=== PATIENT | male | born 1965 | race Caucasian/White ===

== ENCOUNTER 2016-07-28 09:04 | Inpatient (IN) | payer MEDICAID ==
[2016-07-28] VITALS (21 sets, daily range): BP systolic 116–144; BP diastolic 55–77; PULSE 81–98; RESP 14–27; TEMP 98.2
[~2016-07-28] VITALS: Wt 80.0 kg
[2016-07-28] MEDS ORDERED: CEFAZOLIN 1 GM/50 ML (PMX) 50 ML IVPB ONE (09:30)
[2016-07-28] MEDS ORDERED: morphine 4 MG/ML VIAL IV STA ×2 (09:34→14:12)
[2016-07-28] MEDS ORDERED: ONDANSETRON 4 MG INJ IV STA ×2 (09:34→10:52)
[2016-07-28] MEDS ORDERED: SOD CHLORIDE 0.9% 1,000 ML IV ONE ×2 (10:30→14:30)
--- NOTE | 2016-07-28 10:37 | RADRPT ---
PROCEDURE: CR Left Knee CLINICAL INDICATION: Nail puncture wound TECHNIQUE: An AP, lateral, and an oblique radiographs were submitted. COMPARISON: None FINDINGS: Osseous Structures: 8 nail is seen extend obliquely through the distal left femur. The osseous [place] ents otherwise appear intact. Joint Spaces: The joint spaces are well maintained. No joint effusion is identified. Soft Tissues: The soft tissues appear unremarkable. IMPRESSION: 1. An obliquely oriented nail is seen to the distal left femur entering the medial femoral condyle and extending posteriorly, superiorly and laterally. 2. Otherwise, unremarkable left knee series. Physician Shirley Date Time Electronically viewed and signed by Physician Shirley on 07/28/2016 10:36 /
[2016-07-28] MEDS ORDERED: HYDROmorphONE 1 MG/ML SYG IV STA ×3 (10:52→16:47)
[2016-07-28 10:58] LABS: ADD SCAN DIFF NO
[2016-07-28 11:00] LABS: BASOPHILS % 0.5 % (0.0-2.0); EOSINOPHILS # 0.1 10^3/ul (0.0-0.5); EOSINOPHILS % 2.1 % (0.0-7.0); HEMATOCRIT 47.5 % (42.0-52.0); HEMOGLOBIN 15.7 g/dl (14.0-18.0); LYMPHOCYTES # 1.5 10^3/ul (0.8-2.9); LYMPHOCYTES % 33.3 % (15.0-51.0); MEAN CORPUSCULAR HEMOGLOBIN 32.3 pg (29.0-33.0); MEAN CORPUSCULAR HGB CONC 33.1 g/dl (32.0-37.0); MEAN CORPUSCULAR VOLUME 97.7 fl (82.0-101.0); MONOCYTE # 0.3 10^3/ul (0.3-0.9); MONOCYTES % 7.8 % (0.0-11.0); NEUTROPHIL # 2.5 10^3/ul (1.6-7.5); NEUTROPHILS % 56.1 % (39.0-77.0); PLATELET COUNT 154 10^3/UL (140-415); RED BLOOD COUNT 4.86 10^6/ul (4.70-6.10); RED CELL DISTRIBUTION WIDTH 12.4 % (11.5-14.5); WHITE BLOOD COUNT 4.4 10^3/ul (4.8-10.8)
--- NOTE | 2016-07-28 11:14 | ERD ---
ER Documentation Chief Complaint Date/Time DATE: 07/28/16 TIME: 11:11 Chief Complaint nail gun to the left knee HPI 51-year-old male comes in with a penetrating nail gun in the left anterior knee that occurred this morning just prior to arrival. He was at work and he was moving the nail gun in his finger was actually on the trigger that pushed it causing the nail to penetrate into his left knee. He states his last tetanus shot was in the last 2-3 years. He states that he has no numbness, paresthesias or weakness. ROS All systems reviewed and are negative except as per history of present illness. Allergies Allergies: Uncoded Allergies: PCN (Allergy, Unknown, 07/28/16) PMhx/Soc Medical and Surgical Hx: pt denies Medical Hx, pt denies Surgical Hx Hx Alcohol Use: No Hx Substance Use: No Hx Tobacco Use: No Physical Exam Vitals Vital Signs Date Time Temp Pulse Resp B/P Pulse Ox O2 Delivery O2 Flow Rate FiO2 07/28/16 09:06 98.0 72 18 136/63 99 Physical Exam General: Well-developed, well-nourished. The patient appears in no acute distress. HEENT: Head is normocephalic, atraumatic. No scleral icterus. Neck: Supple. Nontender. Lungs: Clear to auscultation. Normal air movement. Heart: Regular rate and rhythm. S1 and S2 are normal. No murmurs, gallops, or rubs. Abdomen: Soft, nontender, nondistended. Bowel sounds are normoactive. Extremities: Penetrating rusted nail over the left anterior medial knee, there is no active bleeding. Limited range of motion due to foreign body in the knee. Dorsalis pedis pulses 2+ bilaterally. Neurologic: Alert and oriented 3. No focal deficits. Skin: Normal turgor. No rash or lesions. Result Diagram: 07/28/1645 07/28/1645 Results 24 hrs Laboratory Tests Test 07/28/16 09:45 White Blood Count 4.410^3/ul Red Blood Count 4.8610^6/ul Hemoglobin 15.7g/dl Hematocrit 47.5% Mean Corpuscular Volume 97.7fl Mean Corpuscular Hemoglobin 32.3pg Mean Corpuscular Hemoglobin Concent 33.1g/dl Red Cell Distribution Width 12.4% Platelet Count 96132^3/UL Mean Platelet Volume 11.0fl Neutrophils % 56.1% Lymphocytes % 33.3% Monocytes % 7.8% Eosinophils % 2.1% Basophils % 0.5% Nucleated Red Blood Cells % 0.0/100WBC Neutrophils # 2.510^3/ul Lymphocytes # 1.510^3/ul Monocytes # 0.310^3/ul Eosinophils # 0.110^3/ul Basophils # 0.010^3/ul Nucleated Red Blood Cells # 0.010^3/ul Sodium Level 138mmol/L Potassium Level 3.7mmol/L Chloride Level 105mmol/L Carbon Dioxide Level 26mmol/L Anion Gap 11 Blood Urea Nitrogen 16mg/dl Creatinine 0.76mg/dl Glucose Level 130mg/dl Calcium Level 8.6mg/dl Current Medications Medications (Trade) Dose Ordered Sig/Rebecca Route PRN Reason Start Time Stop Time Status Last Admin Dose Admin Cefazolin Sodium (Ancef 1 Gm/50 ml (Pmx)) 50 ml @ 100 mls/hr ONCE ONCE IVPB 07/28/16 09:30 07/28/16 09:59 DC 07/28/16 09:50 Morphine Sulfate (morphine) 4 mg ONCE STAT IV 07/28/16 09:34 07/28/16 09:36 DC 07/28/16 09:50 Ondansetron HCl 4 mg 4 mg ONCE STAT IV 07/28/16 09:34 07/28/16 09:36 DC 07/28/16 09:50 Sodium Chloride (NS) 1,000 ml @ 1,000 mls/hr Q1H ONCE IV 07/28/16 10:30 07/28/16 11:29 DC 07/28/16 10:16 Hydromorphone HCl (Dilaudid) 1 mg ONCE STAT IV 07/28/16 10:52 07/28/16 10:53 DC 07/28/16 10:55 Ondansetron HCl (Zofran Inj) 4 mg ONCE STAT IV 07/28/16 10:52 07/28/16 10:53 DC 07/28/16 10:55 Hydromorphone HCl (Dilaudid) 1 mg ONCE STAT IV 07/28/16 11:31 07/28/16 11:32 DC 07/28/16 11:36 PROCEDURE: CR Left Knee CLINICAL INDICATION: Nail puncture wound TECHNIQUE: An AP, lateral, and an oblique radiographs were submitted. COMPARISON: None FINDINGS: Osseous Structures: 8 nail is seen extend obliquely through the distal left femur. The osseous elements otherwise appear intact. Joint Spaces: The joint spaces are well maintained. No joint effusion is identified. Soft Tissues: The soft tissues appear unremarkable. IMPRESSION: 1. An obliquely oriented nail is seen to the distal left femur entering the medial femoral condyle and extending posteriorly, superiorly and laterally. 2. Otherwise, unremarkable left knee series. Physician Shirley Date Time Electronically viewed and signed by Physician Shirley on 07/28/2016 10:36 RH/ CC: ALEKSANDAR MCINTYRE PA-C PROCEDURE: US Lower Extremity Arteries. CLINICAL INDICATION: Pain status post nail gun injury to left knee TECHNIQUE: Multiple longitudinal and transverse images of the bilateral lower extremity arteries were obtained with sharma scale and color Doppler imaging. COMPARISON: No prior studies are available for comparison. 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 The DORIE measures 1.0 bilaterally. IMPRESSION: Unremarkable bilateral lower extremity arterial ultrasound.. RPTAT:HH .Michelle Rader MD, MD Date Time Electronically viewed and signed by .Michelle Rader MD, MD on 07/28/2016 11 :32 12-lead EKG(interpreted by supervising physician): Reviewed by Dr. Reynolds Rate/Rhythm: Normal Sinus Rhythm, rate of 60 QRS, ST, T-waves: No changes consistent w/ acute ischemia, no intervals, no dysrhythmias, no ectopy Impression: No evidence of ischemia or arrhythmia Procedures/MDM ER course: Patient states that his last oral intake was coffee this morning, last solid food intake was last night. He was kept n.p.o. He had a line placed, blood was obtained, he was given morphine 4 mg and Zofran 4 mg IV. He was given a fluid bolus of normal saline 1 L. Patient gave receive an additional dose of Dilaudid 1 mg and Zofran 4 mg IV. Consultation: On-call orthopedist Dr. Birmingham was consulted regarding this penetrating injury into the the knee, case was deferred by him. Thereafter, Dr. Georgiana Vaca was consulted, my attending physician, Dr. Reynolds spoke with him regarding the x-ray findings, IV antibiotics and possible surgery was determined at this point. I spoke with the hospitalist, Dr. Crawford, who accepted the patient for [facility]. MDM: 51-year-old male will be admitted to the hospital for nail removal from the left femur. Patient was monitored in the emergency department, this time there was no evidence of an arterial injury, foreign body will likely need removal with orthopedist, Dr. Vaca who has accepted the patient. Preop workup and labs were ordered. The case was reviewed and discussed with Dr. Reynolds who agrees with the plan of care including labs, treatment, and advanced imaging as appropriate. Departure Diagnosis: Primary Impression: Foreign body of knee Condition: Stable ALEKSANDAR MCINTYRE PA-C Jul 28, 2016 11:14
[2016-07-28 11:19] LABS: CALCIUM 8.6 mg/dl (8.4-10.2); CREATININE 0.76 mg/dl (0.61-1.24); POTASSIUM 3.7 mmol/L (3.5-5.1)
--- NOTE | 2016-07-28 11:33 | RADRPT ---
PROCEDURE: US Lower Extremity Arteries. CLINICAL INDICATION: Pain status post nail gun injury to left knee TECHNIQUE: Multiple longitudinal and transverse images of the bilateral lower extremity arteries w ere obtained with sharma scale and color Doppler imaging. COMPARISON: No prior studies are available for comparison. FINDINGS: RIGHT: CFA71.1 cm/sec PSFA84.7 cm/sec MSFA73.5 cm/sec DSFA47.9 cm/sec POP52.6 cm/sec PTA61.7 cm/sec DPA47.4 cm/sec LEFT: CFA85.3 cm/sec PSFA69.3 cm/sec MSFA74.1 cm/sec DSFA69.2 cm/sec POP40.0 cm/sec PTA59.8 cm/sec DPA32.9 cm/sec All visualized vessels demonstrate normal triphasic flow. The DORIE measures 1.0 bilaterally. IMPRESSION: Unremarkable bilateral lower extremity arterial ultrasound.. RPTAT:HH .Michelle Rader MD, MD Date Time Electronically viewed and signed by .Michelle Rader MD, on 07/28/2016 11:32 .G/
[2016-07-28 12:08] LABS: INR 0.99; PROTIME 13.1 Sec (12.2-14.2)
--- NOTE | 2016-07-28 12:20 | RADRPT ---
PROCEDURE: Chest Radiograph. CLINICAL INDICATION: Preop. Left knee foreign body. TECHNIQUE: Single frontal chest radiograph. COMPARISON: None available FINDINGS: The cardiomediastinal silhouette is within normal limits. No infiltrate or effusion is seen. Th e bones are intact. IMPRESSION: 1. Unremarkable chest radiograph. RPTAT: KK .Ricardo Decker MD, MD Date Time Electronically viewed and signed by .Ricardo Decker MD, on 07/28/2016 12:20 .B/
[2016-07-28 13:01] LABS: ADD UMIC YES; URINE BILIRUBIN (Dip) NEGATIVE (NEGATIVE); URINE BLOOD (Dip) NEGATIVE (NEGATIVE); URINE COLOR LT. YELLOW (YELLOW); URINE GLUCOSE (Dip) NEGATIVE (NEGATIVE); URINE KETONES (Dip) 15 (NEGATIVE); URINE LEUKOCYTE ESTERASE (Dip) NEGATIVE (NEGATIVE); URINE NITRITE (Dip) NEGATIVE (NEGATIVE); URINE TOTAL PROTEIN (Dip) TRACE (NEGATIVE); URINE UROBILINOGEN (Dip) 0.2 E.U./dL (0.1-1.0)
[2016-07-28 13:02] LABS: PARTIAL THROMBOPLASTIN TIME 24.6 Sec (25.0-35.0)
[2016-07-28 13:24] LABS: URINE RBCS NONE SEEN /HPF (0)
[2016-07-28] MEDS ORDERED: NACL 0.9% 3 ML SYG IV SCH ×2 (13:30→20:00)
[2016-07-28] MEDS ORDERED: BISACODYL 10 MG SUPP PR PRN (13:30)
[2016-07-28] MEDS ORDERED: HYDROmorphONE 1 MG/ML SYG IV PRN ×2 (13:30→17:00)
[2016-07-28] MEDS ORDERED: DOCUSATE SODIUM 100 MG CAP PO PRN (13:30)
[2016-07-28] MEDS ORDERED: OXYCODONE/ACETAMINOPHEN (5/325) TAB PO PRN (13:30)
[2016-07-28] MEDS ORDERED: ACETAMINOPHEN 650 MG SUPP PR PRN (13:30)
[2016-07-28] MEDS ORDERED: ONDANSETRON 4 MG INJ IV PRN ×2 (13:30→18:30)
[2016-07-28] MEDS ORDERED: ACETAMINOPHEN 325 MG TAB PO PRN (13:30)
[2016-07-28] MEDS: LEVOFLOXACIN 500MG/D5W (PMX) 100 ML IVPB SCH (13:39)
--- NOTE | 2016-07-28 14:09 | HP ---
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 Esther Vaca CHIEF COMPLAINT: Left knee pain. 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 He accidentally shot his left knee with a nail gun. T he nail was inserted through his left knee, and he was brought into the emergency room where the x-r ay demonstrated an obliquely oriented nail, is seen in the distal left femur entering the medial fem oral condyle and extending posteriorly, superiorly, and laterally. Otherwise, unremarkable left kne e series. The patient was treated with cefazolin, Zofran, morphine, normal saline, Dilaudid. He st ates that his last tetanus shot was about 3 years ago and he did not require any tetanus shot as per ER physician. Orthopedic surgeon was consulted immediately by the course of the emergency room, bu t the patient has been made n.p.o. IV fluids have been initiated and the patient is planned to be t aken to OR later this afternoon. PAST MEDICAL AND SURGICAL HISTORY: None. MEDICATIONS: None. ALLERGIES: PENICILLIN. SOCIAL HISTORY: Positive for smoking half a pack of cigarettes per day. No alcohol, no illicit bárbara gs. FAMILY HISTORY: Noncontributory. REVIEW OF SYSTEMS: As above per HPI. Positive for knee pain. Otherwise, denies having any fever, chills, weight gain, weight loss, anorexia. No chest pain, palpitations, edema, orthopnea. No hopkins ge in visual acuity, diplopia, photophobia. No headache, dizziness, lightheadedness. No abdominal pain, no nausea, vomiting, diarrhea, change in the color of stool, or any other discomfort except wh at was stated above. PHYSICAL EXAMINATION: VITAL SIGNS: Temperature 98.0, pulse 72, respirations 18, blood pressure 136/60, oxygen saturation 99% on room air. GENERAL APPEARANCE: The patient is lying in bed with discomfort secondary to knee pain. He is not using any accessory muscles for breathing. EYES AND ENT: Conjunctivae and lids are normal. Pupils are normal. Extraocular normal. Hearing g rossly normal. Lips are normal. Oral mucosa mildly dry. NECK: Supple. Trachea is midline. No lymphadenopathy. RESPIRATORY: Effort is normal. Clear to auscultation bilaterally. CARDIOVASCULAR: Normal S1, S2. Regular rhythm and rate. No murmur, no bruits, no edema. Peripher al pulses, radial pulses palpable. Cap refill is normal. CHEST: Normal expansion of thorax during inspiration. GASTROINTESTINAL: Abdomen is soft, nontender, not distended. Bowel sounds present. No guarding, n o rebound. GENITOURINARY: Deferred. MUSCULOSKELETAL: Upper extremity within normal limits. Right lower extremity within normal limits. Left lower extremity: There is a nail that is imbedded in the left knee, tender to touch. There is no bleeding, no hematoma, decreased range of motion in lower extremity secondary to pain. Dorsal pedal pulses are palpable. Capillary refill is normal. NEUROLOGIC: Cranial II through XII are grossly intact. PSYCHIATRIC: Normal judgment and insight. Alert and oriented x3. Mood and affect is normal. LABORATORY WORK AND IMAGING: WBC 4.4, hemoglobin 15.7, hematocrit 47.5, platelets 154. Sodium 138, potassium 3.7, chloride 105, bicarbonate 26, BUN 16, creatinine 0.76, glucose 130, calcium 8.6. Ur inalysis negative. PT 13.1, INR 0.99. ASSESSMENT AND PLAN: 1. Trauma to the knee with a nail in the distal left femur entering in the medial femoral condyle a nd extending posteriorly. Orthopedic surgeon has been consulted. The patient has been made n.p.o., IV fluid, pain medication. The patient is planned to be taken to OR by orthopedic surgeon for surg ical intervention. Follow up his recommendations. 2. PENICILLIN ALLERGY. The patient has been placed on Levaquin. Will continue to monitor patient closely. Further recommendations, management, and treatment as per clinical course. Dictated By: RAMÍREZ GREEN/NTS Conf#: [id number] DID#: [id number]
[2016-07-28] MEDS ORDERED: KETOROLAC 15 MG INJ IV STA (14:12)
[2016-07-28] MEDS: D5W-0.45 NACL + KCL 20 MEQ 1,000 ML IV SCH (17:04)
[2016-07-28] MEDS ORDERED: MIDAZOLAM 1 MG/ML 2 ML INJ IV PRN (18:30)
[2016-07-28] MEDS ORDERED: DIPHENHYDRAMINE 50 MG INJ IV PRN (18:30)
[2016-07-28] MEDS ORDERED: MEPERIDINE 25 MG INJ IV PRN (18:30)
[2016-07-28] MEDS ORDERED: FENTAnyl 50 MCG/ML VIAL IV PRN ×2 (18:30)
[2016-07-28] MEDS ORDERED: morphine (1 MG/ML) 10ML SYRINGE IV PRN ×2 (18:30)
[2016-07-28] MEDS ORDERED: METOCLOPRAMIDE 10 MG INJ IV PRN (18:30)
[2016-07-28] MEDS ORDERED: PROPOFOL 20 ML ONE (18:53)
[2016-07-28] MEDS ORDERED: LIDOCAINE 2% (SDV) 5 ML INJ ONE (18:53)
[2016-07-28] MEDS ORDERED: morphine 2 MG INJ IV PRN (20:00)
--- NOTE | 2016-07-28 20:19 | OPR ---
DATE OF OPERATION: 07/28/2016 PREOPERATIVE DIAGNOSIS: Presence of long nail in the distal portion of the left femur, to the left knee joint. POSTOPERATIVE DIAGNOSIS: Presence of long nail in the distal portion of the left femur, to the left knee joint. OPERATION PERFORMED: Removal of nail from the distal femur. ANESTHESIA: General anesthesia. SURGEON: Leora Vaca MD PROCEDURE AND FINDINGS: Under general anesthesia, the patient was placed in supine position upon th e OR table. In order to minimize the soft tissue wrinkling, the knee was placed in a flexed positio n. The head of the nail was tightly grabbed with the vise vending machine repairer, and then carrying out the rotating motion and pulling out of motion, the nail was removed. After the removal of the nail, the opening in the skin was small, and there were no signs of any acute bleeding. After sterilizing the small o pening, dressings were applied. Dictated By: LEORA ESTRADA/JONELLE Conf#: [id number] DID#: [id number]
--- NOTE | 2016-07-28 20:29 | CONS ---
DATE OF ADMISSION: 07/28/2016 DATE OF CONSULTATION: 07/28/2016 TYPE OF CONSULTATION: Orthopedic surgical. HISTORY OF PRESENT ILLNESS: The patient is a 51-year-old male who has been healthy who was admitted on 07/28/2016 through the emergency room when he came into the emergency room complaining of a nail gun injury involving his left knee. 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 He obviously was wearing nguyen ts at the time of the injury, and the nail went through the clothing of the pants, into the knee. Neno tadeo still has the clothing that was partially cut from his pants, and the head of the nail is visible in the middle of this torn clothing. There are no signs of effusion of the knee at this time, and t here were no signs of neurovascular compromise involving the left lower extremity. X-rays of the left knee revealed presence of a nail starting from the medial aspect of the medial fe moral condyle and going obliquely superiorly, laterally and posteriorly. There was no evidence of a ny obvious fracture, and there were no signs of any effusion on the x-rays. DIAGNOSTIC IMPRESSION: Presence of a large nail in the distal medial femoral condyle that appears t o be all the way in through the left knee. TREATMENT PLAN: 1. Remove the nail under brief general anesthesia. 2. IV antibiotics for at least 48 hours. 3. Up and around as tolerated with weightbearing as tolerated after the removal of the nail. Dictated By: LEORA ESTRADA/JONELLE Conf#: [id number] DID#: [id number]
[2016-07-28] MEDS: CEFAZOLIN 1 GM/50 ML (PMX) 50 ML IVPB SCH (22:17)
[2016-07-29] VITALS: BP 125/75; PULSE 84; RESP 18
[2016-07-29] MEDS: D5W-0.45 NACL + KCL 20 MEQ 1,000 ML IV SCH (02:24)
[2016-07-29] MEDS: HYDROCODONE/APAP (5/325) TAB PO PRN ×3 (02:57→19:36)
[2016-07-29 04:00] VITALS: BP 122/77; PULSE 87; RESP 17
[2016-07-29] MEDS: PANTOPRAZOLE (EC) 40 MG TAB PO SCH (06:03)
[2016-07-29] MEDS: CEFAZOLIN 1 GM/50 ML (PMX) 50 ML IVPB SCH ×2 (06:03→12:04)
[2016-07-29 07:55] LABS: ADD SCAN DIFF NO
[2016-07-29 08:26] LABS: BASOPHILS % 0.3 % (0.0-2.0); EOSINOPHILS # 0.2 10^3/ul (0.0-0.5); EOSINOPHILS % 2.7 % (0.0-7.0); HEMATOCRIT 41.7 % (42.0-52.0); HEMOGLOBIN 14.1 g/dl (14.0-18.0); LYMPHOCYTES # 1.6 10^3/ul (0.8-2.9); LYMPHOCYTES % 24.3 % (15.0-51.0); MEAN CORPUSCULAR HEMOGLOBIN 32.7 pg (29.0-33.0); MEAN CORPUSCULAR HGB CONC 33.8 g/dl (32.0-37.0); MEAN CORPUSCULAR VOLUME 96.8 fl (82.0-101.0); MEAN PLATELET VOLUME 10.7 fl (7.4-10.4); MONOCYTE # 0.6 10^3/ul (0.3-0.9); MONOCYTES % 9.7 % (0.0-11.0); NEUTROPHILS % 62.7 % (39.0-77.0); PLATELET COUNT 140 10^3/UL (140-415); RED BLOOD COUNT 4.31 10^6/ul (4.70-6.10); RED CELL DISTRIBUTION WIDTH 12.4 % (11.5-14.5); WHITE BLOOD COUNT 6.4 10^3/ul (4.8-10.8)
[2016-07-29 08:32] LABS: POTASSIUM 3.8 mmol/L (3.5-5.1)
[2016-07-29 08:34] LABS: CREATININE 0.75 mg/dl (0.61-1.24)
[2016-07-29 08:35] LABS: CALCIUM 8.1 mg/dl (8.4-10.2); MAGNESIUM 1.9 mg/dl (1.7-2.5)
[2016-07-29 08:44] VITALS: BP 125/69; RESP 18
--- NOTE | 2016-07-29 09:11 | RADRPT ---
PROCEDURE: XR Left Knee. CLINICAL INDICATION: Left knee pain. Postop. TECHNIQUE: Two views. Frontal and lateral. COMPARISON: 07/28/2016. 1005 hours. FINDINGS: There is no fracture or dislocation. The soft tissues are normal. The articular surfaces are intact. There is no lytic or blastic lesion. There is no radiopaque foreign body. IMPRESSION: 1. Normal images of the left knee. 2. Previously noted nail foreign body in the medial femoral condyle has been removed. RPTAT: QQ .Cheng Coleman MD, MD Date Time Electronically viewed and signed by .Cheng Coleman MD, MD on 07/29/2016 09:11 .R/
[2016-07-29] MEDS ORDERED: LEVOFLOXACIN 500MG/D5W (PMX) 100 ML IVPB SCH (09:30)
[2016-07-29 09:47] LABS: CHOL/HDL RATIO 2.1 RATIO
[2016-07-29 10:18] LABS: THYROID STIMULATING HORMONE 0.718 MIU/L (0.465-4.680)
[2016-07-29] MEDS: LEVOFLOXACIN 500MG/D5W (PMX) 100 ML IVPB SCH (13:14)
--- NOTE | 2016-07-29 16:42 | PN ---
DATE: 07/29/2016 Afebrile with no leukocytosis. Patient has been up and around without any problems. Postop x-ray d id not show any air or abnormal effusions involving the knee. He could be discharged with arrangeme nt for oral antibiotics. The patient was advised to be seen by an orthopedic surgeon in 7 to 10 day s for further followup. Dictated By: LEORA ESTRADA/JONELLE Conf#: [id number] DID#: [id number]
[2016-07-29 19:00] VITALS: BP 123/59; RESP 18
[2016-07-30] MEDS: PANTOPRAZOLE (EC) 40 MG TAB PO SCH (05:02)
[2016-07-30] MEDS: HYDROCODONE/APAP (5/325) TAB PO PRN (05:02)
[2016-07-30 07:45] VITALS: BP 117/65; RESP 15
--- NOTE | 2016-07-30 09:59 | PN ---
DATE: 07/29/2016 TIME OF EVALUATION: 9:15 a.m. SUBJECTIVE DATA: Left knee pain well controlled. The patient has been up and walking. Remains afebrile. OBJECTIVE DATA: VITAL SIGNS: Temperature 98.0, pulse rate 88, respiratory rate 18, blood pressure 125/69, oxygen saturation 98% on room air. GENERAL: This is a well-built, well-nourished, male lying in bed in no apparent distress. HEENT: Head normocephalic and atraumatic. Eyes: Anicteric sclerae. Conjunctivae clear. ENT: Nasal septum is midline. Oral mucosa is moist. NECK: Supple. No JVD noticed. RESPIRATORY: Bilaterally clear to auscultation. No adventitious breath sounds. No use of accessory muscles of respiration. CARDIAC: Regular rate and rhythm. No murmurs heard. ABDOMEN: Soft, nontender and nondistended. Bowel sounds positive in all 4 quadrants. GENITOURINARY: Deferred. EXTREMITIES: No cyanosis, no clubbing, no edema. Peripheral pulses palpable. Left knee surgical dressing with no evidence of any bleeding. Focal erythema. NEUROLOGIC: The patient is awake, alert, and oriented. Cranial nerves are grossly intact. LABORATORY AND DIAGNOSTIC DATA: WBC 6.4, hemoglobin 14.1, hematocrit 41.7, platelet count 140. Sodium 140, potassium 3.8, chloride 107, carbon dioxide 25 , anion gap 13, BUN 11, creatinine 0.7, glucose 115, calcium 8.1, magnesium 1.9. ASSESSMENT AND PLAN: 1. Trauma to the left knee with accidental deployment of a nail gun causing an obliquely-oriented nail in the distal left femur entering the medial femoral condyle. Status post removal by Orthopedic Surgery. Continue pain control. Orthopedic Surgery recommending IV antibiotics for at least 48 hours. Weightbearing as tolerated. 2. Nicotine use. Cessation advised. 3. Fluid, electrolytes and nutrition. Regular diet as tolerated. 4. Deep venous thrombosis prophylaxis. Ambulation. 5. Gastrointestinal prophylaxis. Proton pump inhibitors. PLAN: Continue IV antibiotics as recommended by Orthopedic Surgery. Await clearance from Orthopedic Surgery before discharge. The case was discussed with Dr. Humphries. KIRBY HUMPHRIES MD, AM/JONELLE Conf#: [id number] DID#: [id number] MTDD
--- NOTE | 2016-07-30 10:00 | PDOCDIS ---
Discharge Instructions DIAGNOSIS Discharge Diagnosis: Foreign body in the left knee. CONDITION Patient Condition: Stable HOME CARE INSTRUCTIONS: Diet Instructions: RegularSpecial Diet: regular ACTIVITY: Activity Restrictions: Slowly Increase Activity Rest between Activity Avoid heavy lifting Do not operate Power Tool Avoid Heavy Housework Bathing Restrictions: Shower FOLLOW UP/APPOINTMENTS Appointments Andrew Goyal MD Specialty: Internal Medicine Office Address: [address] [place] [address] Office OTHER ORDERS: Other Orders: 1. Regular diet as tolerated. 2. Take pain medications as needed. Complete the course of antibiotics. 3. Keep the wound clean and dry. 4. Follow-up with an orthopedic surgeon in 7-10 days. Please arrange with your primary care physician for orthopedic surgery follow-up. If you do not have a primary care physician, please call Dr. Andrew Goyal's office. KIRBY PURCELL NP Jul 30, 2016 10:00
[2016-07-30] MEDS ORDERED: LEVO750T8 PO (10:01)
[2016-07-30] MEDS ORDERED: HYDR-906 PO (10:01)
--- NOTE | 2016-07-30 12:50 | DS ---
DATE OF ADMISSION: 07/28/2016 DATE OF DISCHARGE: 07/30/2016 FINAL DIAGNOSES: 1. Trauma to the left knee with accidental deployment of a nail gun, causing an obliquely oriented nail in the left distal femur, entering the medial femoral condyle. Status post removal by orthopedic surgery. 2. Nicotine use. CONSULTATIONS: Dr. Esther Vaca, orthopedic surgery. 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 The patient came to the emergency room. The patient underwent a left knee x-ray that showed an obliquely oriented nail to the distal left femur, entering the medial femoral condyle and extending posteriorly, superiorly and laterally. The patient was admitted to the inpatient medical/surgical floor. The patient was started on adequate pain control. The patient was given tetanus toxin by the ER physician. The patient was started on empiric antibiotics. An orthopedic surgery consult was called. The patient was taken to the OR by the orthopedic surgeon and the patient had removal of the nail without any major complications. The patient was maintained on antibiotics as per orthopedic surgery recommendations. Orthopedic surgery recommended continuing IV antibiotics for at least 48 hours. The patient had no evidence of any infectious processes, including any leukocytosis or febrile illness. Toe patient was cleared by orthopedic surgery to be discharged home on oral antibiotics, to be followed up with outpatient orthopedic surgery. The patient has no other medical problems. The patient is a current nicotine user. The patient was advised on quitting the use of nicotine. The patient had a stable hospital course. The patient was cleared by orthopedic surgery to be discharged home. The patient's left knee pain is well controlled. The patient denied any other complaints at the time of discharge. DISCHARGE DISPOSITION AND PLAN: The patient will be discharged home today. The patient was instructed to take a regular diet as tolerated. He was instructed to take pain medications as needed and to complete the course of antibiotics. He was instructed to keep the left knee wound clean and dry. The patient was instructed to follow up with an orthopedic surgeon in 7 to 10 days and to please arrange with his primary care physician for orthopedic surgery followup. He was instructed that if he does not have a primary care physician, to call Dr. Andrew Goyal's office. The patient was instructed to slowly increase activity and rest between activity. The patient verbalized understanding of his discharge instructions. CONDITION AT DISCHARGE: Stable. DISCHARGE PHYSICAL EXAM: GENERAL: This is a well-built, well-nourished, male lying in bed in no apparent distress. HEENT: Head normocephalic and atraumatic. Eyes: Anicteric sclerae. Conjunctivae clear. ENT: Nasal septum is midline. Oral mucosa is moist. NECK: Supple. No JVD noticed. RESPIRATORY: Bilaterally clear to auscultation. No adventitious breath sounds. No use of accessory muscles of respiration. CARDIAC: Regular rate and rhythm. No murmurs heard. ABDOMEN: Soft, nontender and nondistended. Bowel sounds positive in all 4 quadrants. GENITOURINARY: Deferred. EXTREMITIES: No cyanosis, no clubbing, no edema. Peripheral pulses palpable. Left knee surgical dressing with no evidence of any bleeding. DISCHARGE MEDICATIONS: 1. [place] 5/325, one tablet p.o. q.6h. p.r.n. pain (#20 tablets). 2. Levaquin 750 mg p.o. daily for 10 days. PERTINENT LABORATORY AND DIAGNOSTIC DATA: 1. Left knee x-ray. An obliquely oriented nail seen in the distal femur entering the medial femoral condyle and extending posteriorly, superiorly and laterally. 2. Repeat knee x-ray after removal. Normal images of the knee. Previously noted nail, foreign body, in the medial femoral condyle has been removed. 3. Arterial study of the lower extremities. Unremarkable bilateral lower extremity arterial ultrasound. 4. Chest x-ray. Unremarkable chest radiograph. 5. Latest CBC: WBC 6.4, hemoglobin 14.1, hematocrit 41.7, platelet count 140. 6. Latest BMP: Sodium 140, potassium 3.8, chloride 107, carbon dioxide 25, anion gap 13, BUN 11, creatinine 7.7, calcium 8.1, magnesium 1.9. 7. Hemoglobin A1c 5.5. 8. Fasting lipid panel: Triglycerides 39, total cholesterol 118, LDL 56, AST 54. 9. Vitamin D was 26.7. At this time, I would like to thank Dr. Esther Vaca for seeing the patient, doing the necessary procedures, and providing clinical recommendations. The case and management of this patient was fully discussed with Dr. Lloyd. Approximately 35 minutes was spent on coordinating the discharge on this patient. KIRBY LLOYD MD, AM/JONELLE Conf#: [id number] [facility]#: [id number] MTDD
== END 2016-07-30 12:20 | disposition home or self-care (01) | DRG 909 ==
LOC: FTE 09:04 → MS1 15:42
PROVIDERS: ADMIT Family Medicine; ATTEND Family Medicine
PROC: 0QC Lower Bones, Extirpation (ICD-10-PCS; principal; 2016-07-28 17:30)
DX: S81.022A Laceration with foreign body, left knee, initial encounter (principal); E78.5 Hyperlipidemia, unspecified; Y92.69 Other specified industrial and construction area as the place of occurrence of the external cause; Y99.0 Civilian activity done for income or pay; F17.200 Nicotine dependence, unspecified, uncomplicated; W29.4XXA Contact with nail gun, initial encounter
CPT/HCPCS: 36415; 71010; 73560; 73562; 80048; 80061; 81001; 81003; 82652; 83036; 83735; 84439; 84443; 85025; 85610; 85730; 88300; 93005; 93922; 96361; 96365; 96375; 96376; J0690; J1170; J1885; J1956; J2175; J2270; J2405; J3010; J3480; J7030